=== PATIENT | female | born 1970 | race Caucasian/White ===

== ENCOUNTER 2018-06-30 13:02 | Inpatient (IN) | payer OTHER ==
[2018-06-30] MEDS ORDERED: Albuterol/Ipratropium NEB.SOL* Albuterol 2.5 MG/Ipratropium 0.5 MG 3 ML INH ONE (13:12)
[2018-06-30] MEDS ORDERED: Acetaminophen TAB* 325 MG PO ONE (13:30)
--- NOTE | 2018-06-30 13:31 | ED ---
Shortness of Breath - HPI Summary HPI Summary: This patient is a 47 year old F presenting to [facility] with a chief complaint of gradually worsening dry and intermittently productive cough worsening today with fever, SOB, and chest pain. She recently drove five hours from a conference while wearing compression stockings. Chest pain is described as a dull, non-radiating, ache. She reports headache and episodic coughing that causes nausea and vomiting. She has had difficulty eating for the past 3-4 days. - History of Current Complaint Chief Complaint: EDShortnessOfBreath Time Seen by Provider: 06/30/18 13:23 Hx Obtained From: Patient Onset/Duration: Lasting Days, Worse Since - today Timing: Constant Dyspnea At: Rest Associated Signs & Symptoms: Cough (Productive), Cough (Nonproductive), Chest Pain w/Cough, Fever - Allergy/Home Medications Allergies/Adverse Reactions: Allergies Allergy/AdvReac Type Severity Reaction Status Date / Time droperidol Allergy See Comment Verified 06/30/18 13:18 Home Medications: Home Medications Losartan TAB* 100 mg PO DAILY 06/30/18 [History Confirmed 06/30/18] Multivitamin 1 tab PO DAILY 06/30/18 [History Confirmed 06/30/18] Synthroid 50 mcg PO DAILY 06/30/18 [History Confirmed 06/30/18] PMH/Surg Hx/FS Hx/Imm Hx Cardiovascular History: Reports: Hx Hypertension Respiratory History: Reports: Hx Asthma - Cancer History Cancer Type, Location and Year: none - Surgical History Surgery Procedure, Year, and Place: none - Family History Known Family History: Positive: Hypertension, Diabetes, Other - Brain CA - Social History Alcohol Use: None Hx Substance Use: No Substance Use Type: Reports: None Hx Tobacco Use: No Smoking Status (MU): Never Smoked Tobacco Have You Smoked in the Last Year: No Review of Systems Positive: Fever Positive: Chest Pain Positive: Shortness Of Breath, Cough Positive: Vomiting, Nausea Positive: Headache All Other Systems Reviewed And Are Negative: Yes Physical Exam - Summary Physical Exam Summary: VITAL SIGNS: Reviewed. Patient is febrile GENERAL: Patient is a well-developed and nourished female who is lying comfortable in the stretcher. Patient is not in any acute respiratory distress. HEAD AND FACE: No signs of trauma. No ecchymosis, hematomas or skull depressions. No sinus tenderness. EYES: PERRLA, EOMI x 2, No injected conjunctiva, no nystagmus. EARS: Hearing grossly intact. Ear canals and tympanic membranes are within normal limits. MOUTH: Oropharynx within normal limits. NECK: Supple, trachea is midline, no adenopathy, no JVD, no carotid bruit, no c- spine tenderness, neck with full ROM. CHEST: Symmetric, no tenderness at palpation LUNGS: Clear to auscultation bilaterally. No wheezing or crackles. CVS: Tachycardic rate and regular rhythm, S1 and S2 present, no murmurs or gallops appreciated. Patient is Hypertensive. ABDOMEN: Soft, non-tender. No signs of distention. No rebound no guarding, and no masses palpated. Bowel sounds are normal. EXTREMITIES: FROM in all major joints, no edema, no cyanosis or clubbing. NEURO: Alert and oriented x 3. No acute neurological deficits. Speech is normal and follows commands. SKIN: Dry and warm Triage Information Reviewed: Yes Vital Signs On Initial Exam: Initial Vitals Pulse Resp Pulse Ox 117 15 95 06/30/18 13:21 06/30/18 13:21 06/30/18 13:21 Vital Signs Reviewed: Yes Diagnostics - Vital Signs Vital Signs Pulse Resp Pulse Ox 06/30/18 13:21 117 15 95 - Laboratory Result Diagrams: 06/30/18 13:39 06/30/18 13:39 Lab Statement: Any lab studies that have been ordered have been reviewed, and results considered in the medical decision making process. - Radiology CXR Radiology Interpretation Completed By: Radiologist - [employer]. RECOMMEND FOLLOW-UP UNTIL RESOLUTION TO EXCLUDE UNDERLYING PULMONARY PARENCHYMAL PATHOLOGY. ED Physician has reviewed this report. - EKG 1341 Cardiac Rate: Tachycardia - 121 BPM EKG Rhythm: Sinus Tachycardia EKG Interpretation: no ST elevations Course/Dx - Course Assessment/Plan: This patient is a 47 year old F presenting to [facility] with a chief complaint of gradually worsening dry and intermittently productive cough worsening today with fever, SOB, and chest pain. She recently drove five hours from a conference while wearing compression stockings. Chest pain is described as a dull, non-radiating, ache. She reports headache and episodic coughing that causes nausea and vomiting. She has had difficulty eating for the past 3-4 days. Blood work without any significant abnormality except for he is 90, INR is 1.09, potassium at 3.2, anion gap is 12, glucose 119, CPK 61, CRP 195, urinalysis 2+ proteins, 1+ keytones, leukocyte esterase trace positive for squamous epithelial cells deformity. The urine is contaminated. We will send urine for culture. Chest x-ray impression: Patchy bibasilar consolidations recommend follow-up on to resolution. In the ED course the patient was given IV fluids 30 cc / KG, patient started on Rocephin and azithromycin. Patient also was given a DuoNeb since the patient was wheezing. She was also given Tylenol for the fever. At this point I discussed my physical exam and findings with Dr. Giraldo from the hospital services who accepted the patient for admission. Patient is hemodynamically stable alert oriented 3. - Diagnoses Differential Diagnosis/HQI/PQRI: Positive: Asthma, Bronchitis, CHF, Pneumonia Provider Diagnoses: Pneumonia - Physician Notifications Discussed Care of Patient With: Harman Giraldo - hospitalist Time Discussed With Above Provider: 14:45 Instructed by Provider To: Admit As Inpatient Discharge - Sign-Out/Discharge Documenting (check all that apply): Patient Departure - admit - Discharge Plan Condition: Stable Disposition: ADMITTED TO [facility] - Billing Disposition and Condition Condition: STABLE Disposition: Admitted to [facility] - Attestation Statements Document Initiated by Fernibe: Yes Documenting Scribe: Natividad Muller Provider For Whom Rosaura is Documenting (Include Credential): Xu Mcdonald MD Scribe Attestation: INatividad, scribed for Xu Mcdonald MD on 06/30/18 at 1842. Scribe Documentation Reviewed: Yes Provider Attestation: The documentation as recorded by the scribeNatiivdad accurately reflects the service I personally performed and the decisions made by me, Xu Mcdonald MD
[2018-06-30 13:55] LABS: ABS Basophils 0.1 10^3/ul (0-0.2); ABS Eosinophils 0.1 10^3/ul (0-0.6); ABS Lymphocytes 2.1 10^3/ul (1.0-4.8); ABS Monocytes 0.8 10^3/ul (0-0.8); ABS Neutrophils 5.1 10^3/ul (1.5-7.7); ABS Nucleated RBC 0 10^3/ul; Eosinophil % 1.1 % (0-6); Hematocrit 38 % (35-47); Lymphocyte % 25.9 % (25-47); Mean Corpuscular HGB Conc 34 g/dl (31-36); Mean Corpuscular Hemoglobin 28 pg (27-31); Mean Corpuscular Volume 82 fL (80-97); Mean Platelet Volume 6.7 um3 (7.4-10.4); Nucleated Red Blood Cells % 0.1; Platelet Count 231 10^3/ul (150-450); Red Blood Count 4.62 10^6/ul (4.00-5.40); Red Cell Distribution Width 16 % (10.5-15); White Blood Count 8.1 10^3/ul (3.5-10.8)
[2018-06-30 14:10] LABS: INR 1.09 (0.77-1.02)
[2018-06-30] MEDS ORDERED: Labetalol IV* 5 MG/ML 20 ML VIAL IV PUSH ONE (14:11)
[2018-06-30] MEDS ORDERED: NS 0.9% 1000 ML* 1,000 ML IV ONE (14:11)
--- NOTE | 2018-06-30 14:12 | RAD ---
HISTORY: Cough and fever COMPARISONS: None VIEWS: 4: Frontal dual-energy and lateral views of the chest. FINDINGS: CARDIOMEDIASTINAL SILHOUETTE: The cardiomediastinal silhouette is normal. JEWEL: The jewel are normal. PLEURA: The costophrenic angles are sharp. No pleural abnormalities are noted. LUNG PARENCHYMA: There is patchy alveolar opacification of the lung bases bilaterally, greater on the left than on the right. ABDOMEN: The upper abdomen is clear. There is no subphrenic gas. BONES AND SOFT TISSUES: No bone or soft tissue abnormalities are noted. OTHER: None. IMPRESSION: [employer]. RECOMMEND FOLLOW-UP UNTIL RESOLUTION TO EXCLUDE UNDERLYING PULMONARY PARENCHYMAL PATHOLOGY.
[2018-06-30 14:13] LABS: EGFR Non-African American 85.5 (>60)
[2018-06-30] MEDS ORDERED: cefTRIAXone(*) 2 GM in NS 0.9% 100 ML* 100 ML IVPB ONE (14:37)
[2018-06-30] MEDS ORDERED: Azithromycin IV(*) 500 MG in NS 0.9% 250 ML* 250 ML IVPB ONE (14:37)
[2018-06-30] MEDS ORDERED: NS 0.9% 1000 ML*IV.FLUID IV ONE (14:39)
[2018-06-30] MEDS ORDERED: Potassium Chlor TAB* 20 MEQ TAB.ER PO ONE (14:46)
[2018-06-30] MEDS: guaiFENesin LIQ* 100 MG/5 ML UDC PO SCH ×2 (15:32→21:15)
[2018-06-30 15:33] LABS: Urine Appearance Cloudy; Urine Blood Negative (Negative); Urine Color Amber; Urine Ketones 1+ (Negative); Urine Protein 2+(100 mg/dL) (Negative); Urine Red Blood Cell 2+(6-10/hpf) (Absent); Urine Urobilinogen Positive (Negative); Urine White Blood Cell 1+(6-10/hpf) (Absent)
--- NOTE | 2018-06-30 15:37 | ADMNOTE ---
Subjective Date of Service: 06/30/18 Interval History: ADMISSION HISTORY AND PHYSICAL EXAM: Allergies Allergy/AdvReac Type Severity Reaction Status Date / Time droperidol Allergy See Comment Verified 06/30/18 13:18 Home Medications Medication Instructions Recorded Confirmed Type Losartan TAB* 100 mg PO DAILY 06/30/18 06/30/18 History HPI: the patient states she became sick about 8 days ago. She then went to a meeting in [place] and was worse. She had cough, green sputum, fever, chills, N&V. No recent emesis. Cough now mainly dry. She did not take her usual meds of levothyroxine and losartan for the past week. Her has just recovered from an episode of bronchitis. She used his inhaler once and it helped. Family History: Findings - Father of brain cancer. Fam hx of DM, HTN. Social History: Findings - Lives with her who is her SDM. Quit smoking 13 yrs ago. No alcohol abuse. 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 Past Medical History: Findings - 3 children, x 3, uterine ablation, L oophorectomy, tonsillectomy, breast reduction. Review of Systems - Measurements Intake and Output: Intake and Output Last 24 Hours 06/28/18 06/29/18 06/30/18 07/01/18 06:59 06:59 06:59 06:59 Weight 214 lb - Review of Systems Constitutional Symptoms: Negative: Weight Gain, Weight Loss, Weakness, Fatigue, Fever, Night Sweats, Unexplained Falls, Other Dermatology: Positive: Normal HEENT: Positive: Normal Eyes: Positive: Normal Thyroid: Positive: Primary Hypothyroidism Pulmonary: Positive: Cough, Sputum, Shortness of Breath Cardiology: Positive: Normal Gastroenterology: Positive: Nausea, Vomiting, Anorexia Genital - Urinary: Positive: Normal Musculoskeletal: Negative: Joint Pain, Joint Stiffness, Arthritis, Osteoporosis, Low Back Pain , Sciatica, Joint Deformities, Kyphoscoliosis, Other Endocrinology: Positive: Thyroid Problems Hematologic/Lymphatic: Negative: Anemia, Easy Brusing, Hx Leukemia, Hx Lymphoma, Use of Anticoagulant, Use of Antiplatelet Drugs, Other Neurology: Positive: Normal Psychiatry: Positive: Normal Allergic/Immunologic: Negative: Hx Anaphylaxis, Hx Angioedema, Hx Environmental, Hx Seasonal, Athsma, Hx HIV, Immunocompromise, Swollen Glands LymphNodes, Other Objective Active Medications: Acetaminophen (Tylenol Tab*) 650 mg PO Q4H PRN PRN Reason: TEMP EQUAL OR GREATER 101 F Benzonatate (Tessalon Cap*) 200 mg PO TID PRN PRN Reason: COUGH Enoxaparin Sodium (Lovenox(*)) 40 mg SUBCUT Q24H [facility] Guaifenesin (Robitussin*) 10 ml PO QID [facility] Azithromycin 500 mg/ Sodium (Chloride) 250 mls @ 250 mls/hr IVPB ED ONCE ONE Stop: 06/30/18 15:36 Ceftriaxone Sodium 1 gm/ (Sodium Chloride) 50 mls @ 200 mls/hr IVPB Q24H [facility] Azithromycin 500 mg/ Sodium (Chloride) 250 mls @ 250 mls/hr IVPB Q24H [facility] Potassium Chloride/Sodium Chloride (Ns 0.9% W/ 20 Meq Kcl 1000 Ml*) 1,000 mls @ 75 mls/hr IV PER RATE [facility] Levothyroxine Sodium (Synthroid Tab*) 75 mcg PO ONCE ONE Stop: 06/30/18 16:01 Levothyroxine Sodium (Synthroid Tab*) 50 mcg PO Q48H [facility] Levothyroxine Sodium (Synthroid Tab*) 75 mcg PO Q48H [facility] Losartan Potassium (Cozaar Tab*) 50 mg PO DAILY [facility] Vital Signs - 8 hr 06/30/18 06/30/18 06/30/18 13:21 13:30 13:49 Temperature 101.7 F Pulse Rate 117 115 121 Respiratory 15 20 Rate Blood Pressure 144/105 156/102 (mmHg) O2 Sat by Pulse 95 99 95 Oximetry 06/30/18 06/30/18 06/30/18 13:50 13:58 14:20 Temperature 100.8 F Pulse Rate 118 Respiratory Rate Blood Pressure (mmHg) O2 Sat by Pulse 93 92 Oximetry Oxygen Devices in Use Now: None Appearance: Alert, partly up on ED stretcher. Frequent mod dry cough, otherwise looks comfortable. In fair spirits. Eyes: No Scleral Icterus Neck: NL Appearance and Movements; NL JVP, No Thyroid Enlargement, Masses Respiratory: Symmetrical Chest Expansion and Respiratory Effort, Clear to Auscultation, Clear to Percussion Cardiovascular: NL Sounds; No Murmurs; No JVD, RRR, No Edema, - Abdominal: NL Sounds; No Tenderness; No Distention, No Hepatosplenomegaly Extremities: No Edema, No Clubbing, Cyanosis, - Skin: No Rash or Ulcers, No Nodules or Sclerosis, - Neurological: Alert and Oriented x 3, NL Sensation Result Diagrams: 06/30/18 13:39 06/30/18 13:39 Assess/Plan/Problems-Billing Assessment: - Patient Problems (1) Pneumonia Current Visit: Yes Status: Acute Code(s): J18.9 - PNEUMONIA, UNSPECIFIED ORGANISM SNOMED Code(s): 391011912 Comment: Continue ceftr/azith as started in ED. Scheduled guaifenesin, PRN benzonatate and Duoneb. 4 L crystalloid ordered in ED, then maintenance fluids. (2) Hypothyroid Current Visit: Yes Status: Acute Code(s): E03.9 - HYPOTHYROIDISM, UNSPECIFIED SNOMED Code(s): 41372911 Comment: Add on TSH. She did not take levothyroxine the past week. Resume her home dose 06/30. (3) HTN (hypertension) Current Visit: Yes Status: Acute Code(s): I10 - ESSENTIAL (PRIMARY) HYPERTENSION SNOMED Code(s): 34159373 Comment: Losartan at half her home dose, start 07/01.
[2018-06-30] MEDS ORDERED: Levothyroxine TAB* 75 MCG TAB PO ONE (16:00)
[2018-06-30] MEDS: Albuterol/Ipratropium NEB.SOL* Albuterol 2.5 MG/Ipratropium 0.5 MG 3 ML INH SCH ×3 (16:52→23:39)
[2018-06-30] MEDS: Benzonatate CAP* 100 MG PO PRN (17:57)
[2018-06-30] MEDS: NS 0.9% w/ 20 Meq KCL 1000 ML* 1,000 ML IV SCH ×2 (17:59→18:04)
[2018-06-30] MEDS: Enoxaparin(*) 40 MG/0.4 ML SYR SUBCUT SCH (18:05)
[2018-06-30] MEDS: Acetaminophen TAB* 325 MG PO PRN ×2 (18:39→23:37)
[2018-07-01] MEDS: Albuterol/Ipratropium NEB.SOL* Albuterol 2.5 MG/Ipratropium 0.5 MG 3 ML INH SCH ×7 (03:29→23:25)
[2018-07-01] MEDS ORDERED: Ondansetron ODT TAB* 4 MG PO PRN (04:16)
[2018-07-01] MEDS: Acetaminophen TAB* 325 MG PO PRN ×4 (04:57→23:10)
[2018-07-01] MEDS: Levothyroxine TAB* 50 MCG TAB PO SCH (05:54)
[2018-07-01] MEDS: NS 0.9% w/ 20 Meq KCL 1000 ML* 1,000 ML IV SCH ×2 (07:42→23:14)
[2018-07-01 08:10] LABS: ABS Basophils 0 10^3/ul (0-0.2); ABS Eosinophils 0.1 10^3/ul (0-0.6); ABS Lymphocytes 1.4 10^3/ul (1.0-4.8); ABS Monocytes 0.5 10^3/ul (0-0.8); ABS Neutrophils 4.3 10^3/ul (1.5-7.7); ABS Nucleated RBC 0 10^3/ul; Eosinophil % 1.5 % (0-6); Hematocrit 32 % (35-47); Hemoglobin 10.6 g/dl (12.0-16.0); Mean Corpuscular HGB Conc 34 g/dl (31-36); Mean Corpuscular Hemoglobin 28 pg (27-31); Mean Corpuscular Volume 83 fL (80-97); Mean Platelet Volume 6.6 um3 (7.4-10.4); Nucleated Red Blood Cells % 0.1; Platelet Count 212 10^3/ul (150-450); Red Blood Count 3.84 10^6/ul (4.00-5.40); Red Cell Distribution Width 16 % (10.5-15); White Blood Count 6.3 10^3/ul (3.5-10.8)
[2018-07-01] MEDS: Losartan TAB* 25 MG PO SCH (09:09)
[2018-07-01] MEDS: guaiFENesin LIQ* 100 MG/5 ML UDC PO SCH (09:11)
[2018-07-01] MEDS ORDERED: guaiFENesin LIQ* 100 MG/5 ML UDC PO PRN (11:04)
[2018-07-01] MEDS: cefTRIAXone(*) 1 GM in NS 0.9% 50 ML* 50 ML IVPB SCH (15:33)
--- NOTE | 2018-07-01 15:36 | PN ---
Subjective Date of Service: 07/01/18 Interval History: HOSPITALIST PROGRESS NOTE Patient seen and examined at bedside. Care reviewed and d/w Perez Umanzor RN. She feels a little better today, but still has frequent episodes of dry cough. After nebulizer treatments she's able to expectorate some and feels her airways are open. No fever, but has taken Tylenol when she feels her fever is returning. Family History: Unchanged from Admission Social History: Unchanged from Admission Past Medical History: Unchanged from Admission Objective Active Medications: Acetaminophen (Tylenol Tab*) 650 mg PO Q4H PRN PRN Reason: TEMP EQUAL OR GREATER 101 F Last Admin: 07/01/18 12:18 Dose: 650 mg Albuterol/Ipratropium (Duoneb (Albuterol 2.5 Mg/Ipratropium 0.5 Mg)) 1 neb INH [id number] AWAKE [facility] Last Admin: 07/01/18 15:19 Dose: 1 neb Benzonatate (Tessalon Cap*) 200 mg PO TID PRN PRN Reason: COUGH Last Admin: 06/30/18 17:57 Dose: 200 mg Codeine Sulfate (Codeine Tab*) 15 mg PO Q4H PRN PRN Reason: Severe cough Enoxaparin Sodium (Lovenox(*)) 40 mg SUBCUT Q24H [facility] Last Admin: 06/30/18 18:05 Dose: Not Given Guaifenesin (Robitussin*) 10 ml PO QID PRN PRN Reason: COUGH Ceftriaxone Sodium 1 gm/ (Sodium Chloride) 50 mls @ 200 mls/hr IVPB Q24H [facility] Azithromycin 500 mg/ Sodium (Chloride) 250 mls @ 250 mls/hr IVPB Q24H [facility] Potassium Chloride/Sodium Chloride (Ns 0.9% W/ 20 Meq Kcl 1000 Ml*) 1,000 mls @ 75 mls/hr IV PER RATE [facility] Last Admin: 07/01/18 07:42 Dose: 75 mls/hr Levothyroxine Sodium (Synthroid Tab*) 50 mcg PO Q48H [facility] Last Admin: 07/01/18 05:54 Dose: 50 mcg Levothyroxine Sodium (Synthroid Tab*) 75 mcg PO Q48H [facility] Losartan Potassium (Cozaar Tab*) 50 mg PO DAILY [facility] Last Admin: 07/01/18 09:09 Dose: 50 mg Ondansetron HCl (Zofran Odt Tab*) 4 mg PO Q6H PRN PRN Reason: n/v Last Admin: 07/01/18 04:57 Dose: 4 mg Vital Signs - 8 hr 07/01/18 07/01/18 07/01/18 07:45 07:55 07:57 Temperature 98.5 F Pulse Rate 109 Respiratory 24 Rate Blood Pressure 131/78 (mmHg) O2 Sat by Pulse 97 97 Oximetry 07/01/18 07/01/18 11:15 15:17 Temperature Pulse Rate 109 97 Respiratory 20 20 Rate Blood Pressure (mmHg) O2 Sat by Pulse 97 98 Oximetry Oxygen Devices in Use Now: None Appearance: Pleasant obese lady sitting up in bed in NAD, but with frequent episodes of cough. Eyes: No Scleral Icterus Ears/Nose/Mouth/Throat: Mucous Membranes Moist Neck: Trachea Midline Respiratory: Symmetrical Chest Expansion and Respiratory Effort, - - BS+ bilaterally, crackles on right base, no wheezes or rhonchi Cardiovascular: RRR - Normal S1 and S2 Neurological: Alert and Oriented x 3, NL Muscle Strength and Tone Result Diagrams: 07/01/18 08:04 07/01/18 08:04 Microbiology and Other Data: Microbiology 06/30/18 13:41 Aerobic Blood Culture - Preliminary Blood Venous No Growth Day 1 Anaerobic Blood Culture - Preliminary No Growth Day 1 06/30/18 13:39 Aerobic Blood Culture - Preliminary Blood Venous No Growth Day 1 Anaerobic Blood Culture - Preliminary No Growth Day 1 06/30/18 19:35 Influenza Types A,B Antigen - Final Nasal Specimen received for Influenza A/B Molecular testing Assess/Plan/Problems-Billing Assessment: Mrs Dread Jacobs is a 47yo F with PMH of obesity with BMI 37, HTN, hypothyroidism, who presented to ED with c/o cough and shortness of breath, found to have pneumonia. - Patient Problems (1) Sepsis Comment: - Present on admission with fever and tachycardia. - Source is pneumonia. (2) Pneumonia Comment: - Check Legionella and pneumococcal Ag. - Continue Ceftriaxone and Zithromax. - Feels symptomatic improvement with bronchodilators. - Will add codeine for cough control. (3) HTN (hypertension) Comment: - Continue Losartan and monitor BP. (4) Hypothyroid Comment: - TSH 3.6. S - Continue Levothyroxine. (5) DVT prophylaxis Comment: - Lovenox. (6) Full code status Status and Disposition: Change to inpatient.
[2018-07-01] MEDS: Benzonatate CAP* 100 MG PO PRN (17:21)
[2018-07-01] MEDS: Azithromycin IV(*) 500 MG in NS 0.9% 250 ML* 250 ML IVPB SCH (17:22)
[2018-07-01] MEDS: Enoxaparin(*) 40 MG/0.4 ML SYR SUBCUT SCH (17:25)
[2018-07-01] MEDS ORDERED: LORazepam TAB(*) 0.5 MG PO PRN (22:58)
[2018-07-01] MEDS: Codeine TAB* 15 MG PO PRN (23:09)
[2018-07-02] MEDS: Albuterol/Ipratropium NEB.SOL* Albuterol 2.5 MG/Ipratropium 0.5 MG 3 ML INH SCH ×6 (03:17→23:21)
[2018-07-02] MEDS: Acetaminophen TAB* 325 MG PO PRN ×4 (03:55→23:35)
[2018-07-02] MEDS: Levothyroxine TAB* 75 MCG TAB PO SCH ×2 (06:04→06:07)
[2018-07-02] MEDS: Losartan TAB* 25 MG PO SCH (07:56)
[2018-07-02] MEDS: Codeine TAB* 15 MG PO PRN ×3 (07:56→23:36)
[2018-07-02] MEDS: methylPREDNISolone SOD 40 MG* 1 ML VIAL IV SCH ×2 (10:15→23:35)
--- NOTE | 2018-07-02 12:48 | PN ---
Subjective Date of Service: 07/02/18 Interval History: HOSPITALIST PROGRESS NOTE Patient seen and examined at bedside. Care reviewed and d/w Perez Umanzor RN. Her breathing is a little worse today, has wheezing and rhonchi, frequent cough. Denies chest pain, dizziness, lightheadedness. Family History: Unchanged from Admission Social History: Unchanged from Admission Past Medical History: Unchanged from Admission Objective Active Medications: Acetaminophen (Tylenol Tab*) 650 mg PO Q4H PRN PRN Reason: TEMP EQUAL OR GREATER 101 F Last Admin: 07/02/18 07:55 Dose: 650 mg Albuterol/Ipratropium (Duoneb (Albuterol 2.5 Mg/Ipratropium 0.5 Mg)) 1 neb INH [id number] AWAKE [facility] Last Admin: 07/02/18 11:03 Dose: 1 neb Benzonatate (Tessalon Cap*) 200 mg PO TID PRN PRN Reason: COUGH Last Admin: 07/01/18 17:21 Dose: 200 mg Codeine Sulfate (Codeine Tab*) 15 mg PO Q4H PRN PRN Reason: Severe cough Last Admin: 07/02/18 07:56 Dose: 15 mg Enoxaparin Sodium (Lovenox(*)) 40 mg SUBCUT Q24H [facility] Last Admin: 07/01/18 17:25 Dose: Not Given Guaifenesin (Robitussin*) 10 ml PO QID PRN PRN Reason: COUGH Ceftriaxone Sodium 1 gm/ (Sodium Chloride) 50 mls @ 200 mls/hr IVPB Q24H [facility] Last Admin: 07/01/18 15:33 Dose: 200 mls/hr Azithromycin 500 mg/ Sodium (Chloride) 250 mls @ 250 mls/hr IVPB Q24H [facility] Last Admin: 07/01/18 17:22 Dose: 250 mls/hr Levothyroxine Sodium (Synthroid Tab*) 50 mcg PO Q48H [facility] Last Admin: 07/01/18 05:54 Dose: 50 mcg Levothyroxine Sodium (Synthroid Tab*) 75 mcg PO Q48H [facility] Last Admin: 07/02/18 06:07 Dose: 75 mcg Lorazepam (Ativan Tab(*)) 0.5 mg PO BEDTIME PRN PRN Reason: SLEEP Losartan Potassium (Cozaar Tab*) 50 mg PO DAILY [facility] Last Admin: 07/02/18 07:56 Dose: 50 mg Methylprednisolone Sodium Succinate (Solu-Medrol 40 Mg) 40 mg IV Q12H [facility] Last Admin: 07/02/18 10:15 Dose: 40 mg Ondansetron HCl (Zofran Odt Tab*) 4 mg PO Q6H PRN PRN Reason: n/v Last Admin: 07/01/18 04:57 Dose: 4 mg Vital Signs - 8 hr 07/02/18 07/02/18 07/02/18 07:13 07:23 07:24 Temperature 98.0 F Pulse Rate 88 Respiratory 18 24 24 Rate Blood Pressure 123/68 (mmHg) O2 Sat by Pulse 95 95 Oximetry 07/02/18 07/02/18 07/02/18 07:25 07:36 07:56 Temperature Pulse Rate 86 Respiratory 24 18 24 Rate Blood Pressure (mmHg) O2 Sat by Pulse 99 Oximetry 07/02/18 07/02/18 10:21 11:05 Temperature Pulse Rate 88 Respiratory 18 20 Rate Blood Pressure (mmHg) O2 Sat by Pulse 99 Oximetry Oxygen Devices in Use Now: None Appearance: Pleasant obese lady sitting up in bed in NAD. Eyes: No Scleral Icterus Ears/Nose/Mouth/Throat: Mucous Membranes Moist Neck: Trachea Midline Respiratory: Symmetrical Chest Expansion and Respiratory Effort, - - BS+ bilaterally with scattered wheezes Cardiovascular: RRR - Normal S1 and S2 Neurological: Alert and Oriented x 3, NL Muscle Strength and Tone Result Diagrams: 07/01/18 08:04 07/01/18 08:04 Assess/Plan/Problems-Billing Assessment: Mrs Dread Jacobs is a 47yo F with PMH of obesity with BMI 37, HTN, hypothyroidism, who presented to ED with c/o cough and shortness of breath, found to have pneumonia. - Patient Problems (1) Sepsis Comment: - Present on admission with fever and tachycardia. - Source is pneumonia. (2) Pneumonia Comment: - Legionella and pneumococcal Ag are negative. - Continue Ceftriaxone and Zithromax. - Feels symptomatic improvement with bronchodilators. - Continue codeine for cough control. - Never diagnosed with asthma. Suspect a component of reactive airway/ bronchitis - will add steroids. (3) HTN (hypertension) Comment: - Continue Losartan and monitor BP. (4) Hypothyroid Comment: - TSH 3.6. - Continue Levothyroxine. (5) DVT prophylaxis Comment: - Lovenox. (6) Full code status Status and Disposition: Inpatient.
[2018-07-02] MEDS: cefTRIAXone(*) 1 GM in NS 0.9% 50 ML* 50 ML IVPB SCH (15:11)
[2018-07-02] MEDS: Azithromycin IV(*) 500 MG in NS 0.9% 250 ML* 250 ML IVPB SCH (16:41)
[2018-07-02] MEDS: Enoxaparin(*) 40 MG/0.4 ML SYR SUBCUT SCH (16:42)
[2018-07-03] MEDS: Albuterol/Ipratropium NEB.SOL* Albuterol 2.5 MG/Ipratropium 0.5 MG 3 ML INH SCH ×6 (03:33→23:35)
[2018-07-03] MEDS: Levothyroxine TAB* 50 MCG TAB PO SCH (05:41)
[2018-07-03 06:51] LABS: ABS Basophils 0 10^3/ul (0-0.2); ABS Eosinophils 0 10^3/ul (0-0.6); ABS Lymphocytes 1.1 10^3/ul (1.0-4.8); ABS Monocytes 0.2 10^3/ul (0-0.8); ABS Neutrophils 5.6 10^3/ul (1.5-7.7); ABS Nucleated RBC 0 10^3/ul; Eosinophil % 0.1 % (0-6); Hematocrit 31 % (35-47); Hemoglobin 10.7 g/dl (12.0-16.0); Lymphocyte % 16.5 % (25-47); Mean Corpuscular HGB Conc 34 g/dl (31-36); Mean Corpuscular Hemoglobin 28 pg (27-31); Mean Corpuscular Volume 82 fL (80-97); Mean Platelet Volume 6.9 um3 (7.4-10.4); Nucleated Red Blood Cells % 0.1; Platelet Count 268 10^3/ul (150-450); Red Cell Distribution Width 16 % (10.5-15)
[2018-07-03 07:18] LABS: EGFR Non-African American 145.6 (>60)
[2018-07-03] MEDS: Losartan TAB* 25 MG PO SCH (09:37)
[2018-07-03] MEDS: methylPREDNISolone SOD 40 MG* 1 ML VIAL IV SCH ×2 (09:37→23:04)
[2018-07-03] MEDS: cefTRIAXone(*) 1 GM in NS 0.9% 50 ML* 50 ML IVPB SCH (15:10)
[2018-07-03] MEDS: Enoxaparin(*) 40 MG/0.4 ML SYR SUBCUT SCH (15:14)
--- NOTE | 2018-07-03 15:36 | PN ---
Subjective Date of Service: 07/03/18 Interval History: HOSPITALIST PROGRESS NOTE Patient seen and examined at bedside. Care reviewed and d/w Roya Puga RN. She feels a little better today. Still dyspneic and with frequent cough, but less intense than yesterday. Family History: Unchanged from Admission Social History: Unchanged from Admission Past Medical History: Unchanged from Admission Objective Active Medications: Acetaminophen (Tylenol Tab*) 650 mg PO Q4H PRN PRN Reason: TEMP EQUAL OR GREATER 101 F Last Admin: 07/02/18 23:35 Dose: 650 mg Albuterol/Ipratropium (Duoneb (Albuterol 2.5 Mg/Ipratropium 0.5 Mg)) 1 neb INH [id number] AWAKE [facility] Last Admin: 07/03/18 11:22 Dose: 1 neb Benzonatate (Tessalon Cap*) 200 mg PO TID PRN PRN Reason: COUGH Last Admin: 07/01/18 17:21 Dose: 200 mg Codeine Sulfate (Codeine Tab*) 15 mg PO Q4H PRN PRN Reason: Severe cough Last Admin: 07/02/18 23:36 Dose: 15 mg Enoxaparin Sodium (Lovenox(*)) 40 mg SUBCUT Q24H [facility] Last Admin: 07/03/18 15:14 Dose: Not Given Guaifenesin (Robitussin*) 10 ml PO QID PRN PRN Reason: COUGH Ceftriaxone Sodium 1 gm/ (Sodium Chloride) 50 mls @ 200 mls/hr IVPB Q24H [facility] Last Admin: 07/03/18 15:10 Dose: 200 mls/hr Azithromycin 500 mg/ Sodium (Chloride) 250 mls @ 250 mls/hr IVPB Q24H [facility] Last Admin: 07/02/18 16:41 Dose: 250 mls/hr Influenza Virus Vaccine (Fluarix *Quad* 2018-19*) 0.5 ml IM .ONCE ONE Stop: 07/04/18 09:01 Levothyroxine Sodium (Synthroid Tab*) 50 mcg PO Q48H [facility] Last Admin: 07/03/18 05:41 Dose: 50 mcg Levothyroxine Sodium (Synthroid Tab*) 75 mcg PO Q48H [facility] Last Admin: 07/02/18 06:07 Dose: 75 mcg Lorazepam (Ativan Tab(*)) 0.5 mg PO BEDTIME PRN PRN Reason: SLEEP Losartan Potassium (Cozaar Tab*) 50 mg PO DAILY [facility] Last Admin: 07/03/18 09:37 Dose: 50 mg Methylprednisolone Sodium Succinate (Solu-Medrol 40 Mg) 40 mg IV Q12H [facility] Last Admin: 07/03/18 09:37 Dose: 40 mg Ondansetron HCl (Zofran Odt Tab*) 4 mg PO Q6H PRN PRN Reason: n/v Last Admin: 07/01/18 04:57 Dose: 4 mg Vital Signs - 8 hr 07/03/18 07/03/18 07/03/18 07:44 08:00 08:37 Temperature 97.6 F Pulse Rate 85 78 Respiratory 18 18 16 Rate Blood Pressure 138/75 (mmHg) O2 Sat by Pulse 97 97 96 Oximetry 07/03/18 07/03/18 07/03/18 11:24 11:45 15:07 Temperature 98.0 F 98.2 F Pulse Rate 83 89 90 Respiratory 16 17 19 Rate Blood Pressure 137/83 116/63 (mmHg) O2 Sat by Pulse 98 98 95 Oximetry Oxygen Devices in Use Now: None Appearance: Pleasant obese lady sitting up in bed in NAD. Eyes: No Scleral Icterus Ears/Nose/Mouth/Throat: Mucous Membranes Moist Neck: Trachea Midline Respiratory: Symmetrical Chest Expansion and Respiratory Effort, - - BS+ bilaterally with right base crackles, no wheezes Cardiovascular: RRR - Normal S1 and S2 Neurological: Alert and Oriented x 3, NL Muscle Strength and Tone Result Diagrams: 07/03/18 06:39 07/03/18 06:39 Assess/Plan/Problems-Billing Assessment: Mrs Dread Jacobs is a 47yo F with PMH of obesity with BMI 37, HTN, hypothyroidism, who presented to ED with c/o cough and shortness of breath, found to have pneumonia. - Patient Problems (1) Sepsis Comment: - Present on admission with fever and tachycardia. - Source is pneumonia. (2) Pneumonia Comment: - Legionella and pneumococcal Ag are negative. - Continue Ceftriaxone and Zithromax #3. - Feels symptomatic improvement with bronchodilators. - Continue codeine for cough control. - Never diagnosed with asthma. Suspect a component of reactive airway/ bronchitis now with good response to steroids. Would do slow taper as outpatient. (3) HTN (hypertension) Comment: - Continue Losartan and monitor BP. (4) Hypothyroid Comment: - TSH 3.6. - Continue Levothyroxine. (5) DVT prophylaxis Comment: - Lovenox. (6) Full code status Status and Disposition: Inpatient. Possible d/c in AM.
[2018-07-03] MEDS: Azithromycin IV(*) 500 MG in NS 0.9% 250 ML* 250 ML IVPB SCH (15:46)
[2018-07-03] MEDS: Codeine TAB* 15 MG PO PRN ×2 (19:35→23:03)
[2018-07-03] MEDS: Acetaminophen TAB* 325 MG PO PRN ×2 (19:36→23:03)
[2018-07-04] MEDS: Levothyroxine TAB* 75 MCG TAB PO SCH (06:10)
[2018-07-04] MEDS: Albuterol/Ipratropium NEB.SOL* Albuterol 2.5 MG/Ipratropium 0.5 MG 3 ML INH SCH ×3 (07:14→11:09)
[2018-07-04 07:44] VITALS: BP 137/85
[2018-07-04] MEDS: Acetaminophen TAB* 325 MG PO PRN (10:28)
[2018-07-04] MEDS: Codeine TAB* 15 MG PO PRN ×2 (10:29→14:56)
[2018-07-04] MEDS: Losartan TAB* 25 MG PO SCH (10:30)
[2018-07-04] MEDS: methylPREDNISolone SOD 40 MG* 1 ML VIAL IV SCH (10:30)
[2018-07-04] MEDS: cefTRIAXone(*) 1 GM in NS 0.9% 50 ML* 50 ML IVPB SCH (15:37)
--- NOTE | 2018-07-05 04:15 | DS ---
CC: Dr. Giraldo; Dr. Mcdonald; ANNE Lee.* DISCHARGE SUMMARY: DATE OF ADMISSION: DATE OF DISCHARGE: 07/04/18. DISCHARGE DIAGNOSES: 1. Pneumonia with sepsis, sepsis resolved. 2. Hypertension. 3. Hypothyroidism. HISTORY OF PRESENT ILLNESS/HOSPITAL COURSE: The patient is a 47-year-old lady with no documented past medical history who was reported to have been started to be sick about 8 days prior to admission when she had a meeting in [place]. This has then gotten worse culminating in cough with green sputum, fever, chills as well as nausea and vomiting, presented to the ED and was found to have pneumonia with sepsis and was treated with Rocephin and azithromycin. Blood cultures have so far been negative for 4 days. Legionella and Strep pneumonia urine antigen were found to be negative and the patient has clinically improved. She still does have some mild cough that is controlled by codeine as well as Tessalon Perles and Robitussin. She feels better and would like to go home. She had an ambulatory saturation test prior to her discharge and which suggest that she does not need any additional oxygen at home. She had been advised to follow up and/or call her PCP within 3 days post-DC. She had been advised that if her symptoms resume or develop new ones or feel unwell for any reason to please call her PCP and if her PCP cannot entertain her due to scheduling issues alone to call [facility] if the issue is non-emergent. She was advised to call my office regarding any questions, concerns, or further clarifications regarding her discharge plans and/or prescriptions and she was advised to take her medications as prescribed. On review of systems, she denied any recent headache, dizziness, fever, chills, nausea, vomiting, chest pain, shortness of breath, increased cough, sputum production, abdominal pain, diarrhea, constipation, pain and/or increased frequency in urination, myalgias, arthralgias, throat pain or new skin lesions. The rest of the 14-point review of systems are otherwise unremarkable. PHYSICAL EXAMINATION: Shows the most recent vital signs of records with temperature of 97.4 degrees Fahrenheit, heart rate of 85 beats per minute, 14 per minute respiratory rate, saturating at 95% room air. General appearance: The patient is awake, alert and oriented x3, not in acute distress. HEENT: Normocephalic, atraumatic. PERRLA. Extraocular muscles intact. Negative for icterus. Moist oral mucosa. Negative throat erythema. Neck: Soft, supple with no cervical lymphadenopathy, no JVD. Heart: S1, S2 within normal limits. Regular rate and rhythm. No murmurs, rubs or gallops. Chest: Clear to auscultation bilaterally. Good air entry. No wheezes, rales or rhonchi. Abdomen: Soft, nondistended, nontender. Normoactive bowel sounds x4 Q. Extremities: No cyanosis, clubbing or edema. Psychiatric: No active psychosis , depression, suicidal nor homicidal ideation. Skin: Warm to touch. DISCHARGE MEDICATIONS: 1. DuoNebs q.4 hours while awake. 2. Benzonatate 200 mg p.o. t.i.d. p.r.n. 3. Codeine 15 mg p.o. q. 4 p.r.n. dispensed 12 with 0 refills. 4. Guaifenesin 10 mL p.o. q.i.d. 5. Synthroid 75 mcg p.o. q. 48 and 50 mcg q. 48 alternating dose. 6. Lorazepam. 7. Ativan 0.5 mg tab p.o. q.h.s. dispensed 10 tabs with 0 refills. 8. Levaquin 750 p.o. daily for 3 days. 9. Florinef 1 tab p.o. daily for 7 days. 10. Prednisone rapid taper as indicated. TIME SPENT: The total time spent evaluating the patient, reviewing pertinent data, and appropriate documentation is 50 minutes. [id number]/[facility] #: [id number] MTDD
== END 2018-07-04 16:10 | disposition home or self-care (01) | DRG 871 ==
LOC: ED 13:02 → MED 15:20 → OBSVTOIN 07-01 15:22
PROVIDERS: ADMIT Internal Medicine; ATTEND Student in an Organized Health Care Education/Training Program
DX: A41.9 Sepsis, unspecified organism (principal); J18.9 Pneumonia, unspecified organism; E03.9 Hypothyroidism, unspecified; E66.9 Obesity, unspecified; I10 Essential (primary) hypertension; Z82.49 Family history of ischemic heart disease and other diseases of the circulatory system; Z88.8 Allergy status to other drugs, medicaments and biological substances; Z83.3 Family history of diabetes mellitus; Z90.721 Acquired absence of ovaries, unilateral; Z87.891 Personal history of nicotine dependence; Z80.8 Family history of malignant neoplasm of other organs or systems; Z23 Encounter for immunization; Z68.37 Body mass index [BMI] 37.0-37.9, adult; Z79.52 Long term (current) use of systemic steroids; J45.909 Unspecified asthma, uncomplicated
CPT/HCPCS: 36415; 71046; 80048; 80053; 81003; 81015; 82550; 83605; 83735; 83880; 84145; 84443; 84484; 85025; 85610; 85652; 85730; 86140; 87040; 87086; 87899; 90686; 93005; 94640; 99285; A9270-GY; G0378; J0456; J0696; J1650; J2920

== ENCOUNTER 2020-01-30 13:44 | Emergency (ER) | payer OTHER ==
[2020-01-30 14:28] VITALS: BP 133/91
[2020-01-30 15:27] LABS: HIV 4th Generation Nonreactive (Nonreactive)
[2020-01-30 15:33] LABS: Hepatitis B Surface Antigen Nonreactive (Nonreactive)
[2020-01-30 15:50] LABS: Hepatitis B Surface Ab Immune (Immune)
[2020-01-30 15:51] LABS: Hepatitis C Antibody Negative (Negative)
== END 2020-01-30 14:38 | disposition home or self-care (01) ==
LOC: ED 13:44